=== PATIENT | male | born 1940 | race Caucasian/White ===

== ENCOUNTER 2021-02-19 11:09 | Inpatient (IN) | payer MEDICARE, BC ==
[~2021-02-19] VITALS: Ht 175.3 cm; Wt 73.5 kg
--- NOTE | ~2021-02-19 | RHP ---
PATIENT: KYLE COCHRAN JR MEDICAL RECORD: [id number] ACCOUNT: [id number] LOCATION:[facility] D.1119 : 39 ADMISSION DATE: 02/19/21 REHABILITATION HISTORY AND PHYSICAL EXAMINATION POST ADMISSION PHYSICIAN EXAMINATION ADMITTING DIAGNOSIS: Chemo-induced encephalopathy. HISTORY OF PRESENT ILLNESS: The patient is an 80-year-old gentleman who presented to [facility] due to right hip pain and numerous falls at home over the month. His x-ray apparently did not show anything acute. He did exhibit some improvement with physical therapy, progressing to transfers and being able to perform some lower extremity things. [facility] contacted a snf regarding his need for acute inpatient rehabilitation. Current diagnosis of osteoarthritis, hypertension, debility, pneumonia, CHF. The patient also takes chemotherapy medication for prostate cancer and some of this seems to have been instigated when he started taking this medication. Spouse reports that the patient continued to decline since 2019 when starting on the medication and he progressively became worse. She states that due to his extreme weakness and fainting that he was admitted to [facility] originally because of this and hip pain. Subsequent admission to the acute rehab was requested by the daughter and spouse to hopefully get him back to independently using a rolling walker. The patient has no injuries at this time. Spouse report that the patient spent 3 more days in acute rehab after having lithotripsy done secondary to a kidney stone. He apparently also exhibited some signs and symptoms of possible COVID infection, but this was never checked. and daughter reported that his taste and smell returned weeks after following admission and he has now been vaccinated for COVID. The patient also has been having some home health physical therapy since October, but continues to decline. He is unable to transfer independently and has become increasingly wheelchair bound. Hopefully, we can get him here in the rehab and get him back to somewhat of a prior level of function or actually able to ambulate independently with a rolling walker. COMORBIDITIES: Include CHF, gastroesophageal reflux disease, debility, hypertension and osteoarthritis. PAST MEDICAL HISTORY: Significant for kidney stones, history of prostate cancer, essential tremors, BPH, diastolic dysfunction, hyperlipidemia, hypertension and obstructive sleep apnea. PAST SURGICAL HISTORY: Includes lithotripsy, laminectomy. He has had colon endoscopies done in the past. ALLERGIES: LIPITOR AND LISINOPRIL. MEDICATIONS: Tylenol 1000 mg daily, B12 daily, propranolol 80 mg daily, losartan 100 mg daily, atorvastatin 40 mg daily, amlodipine 10 mg daily, Flomax 0.4 mg daily, Protonix 40 daily. He is on his own medicine enzalutamide which is a medicine for his prostate cancer. He is on Sanctura 20 mg b.i.d., clonidine 0.1 mg b.i.d., Ultram 50 mg as needed, primidone 250 t.i.d., Apresoline 50 mg t.i.d. and baclofen 20 mg t.i.d. HABITS: No current alcohol or tobacco use. HISTORY AND PHYSICAL [id number] KYLE COCHRAN JR FAMILY HISTORY: Noncontributory. SOCIAL HISTORY: The patient hopes to return back home and get back to his prior level of functioning. REVIEW OF SYSTEMS: GENERAL: He does complain of weakness and fatigue. He denies cold, cough, congestion. CARDIOVASCULAR: Denies any chest pain. PHYSICAL EXAMINATION: VITAL SIGNS: Stable, afebrile. GENERAL: An elderly gentleman in no acute distress upon exam. HEENT: Normocephalic and atraumatic. Mucosa moist. NECK: Supple. No lymphadenopathy. LUNGS: Clear in upper peralta. No wheezing or rales. HEART: Regular rate and rhythm. No murmurs, rubs or gallops. ABDOMEN: Soft, benign, nondistended. Positive bowel sounds times 4. EXTREMITIES: No clubbing, cyanosis. Does have some bruising noted in those areas. NEUROLOGIC: He does have diffuse weakness in the trunk muscles of his body and also on his proximal muscles of his upper thighs. LABORATORY DATA: His white count is 3.2, H&H of 12 and 36 and platelet count is noted to be 244. Sodium 137, potassium 4.2. BUN and creatinine of 12 and 0.6. Blood sugar is noted to be 91. ASSESSMENT: This is an 80-year-old gentleman admitted to the rehab with a working diagnosis of chemo-induced encephalopathy. The patient has potential to make improvement. We instituted the following multidisciplinary therapies including not limited to physical, occupational, respiratory, speech, nutritional services, prosthetics and orthotics. Given his complex medical condition and risks for further medical complications, rehabilitation services cannot be provided at a low level of care such as snf facility. PLAN: 1. Admit to [facility] for inpatient therapy to include the following disciplines; A. Physical therapy to improve gait, all transfer skills and bed mobility to a modified independent level. B. Occupational therapy to improve activities of daily living. C. Case management to help with discharge planning and placement options. D. Nutrition to assist with nutritional needs. E. Rehabilitation nursing to assist in monitoring the patient's underlying medical condition and to assist with any type of bowel or bladder management. 2. The patient's current medication and Medicare will be continued. 3. Placed on standard fall precautions. 4. The patient's estimated length of stay is approximately 7-10 days. 5. I discussed this patient during care team staff meeting this week. TRANSINT:[id number] Voice Confirmation ID: [id number] DOCUMENT ID: [id number] 03/07/2021 joseph GALLEGOS notes whether there has been none or any medical/functional HISTORY AND PHYSICAL [id number] KYLE COCHRAN JR change since admission: - No change since preadmission screen. EL attests patient continues to be appropriate for IRF: - Continues to be appropriate. DASH MEHTA MD CC: [id number] DICTATION DATE: 02/20/21903 NOC TECHNICIAN: 02/20/21930 ADM IN [facility] [address] [id number]
--- NOTE | 2021-02-19 10:30 | NUR ---
RECIEVED FROM NACHO A DIRECT ADMIT TO ROOM 1112K,ORIENTED TO ROOM AND SURROUNDINGS.CL IN REACH.
[2021-02-19] MEDS ORDERED: XTANDI40 MG PO (11:30)
[2021-02-19] MEDS ORDERED: BACLOFEN20 M1 PO (11:31)
[2021-02-19] MEDS ORDERED: HYDRALAZINE HCL50 MG PO (11:32)
[2021-02-19] MEDS ORDERED: MYSOLINE250 MG PO (11:38)
[2021-02-19] MEDS ORDERED: FLOMAX0.4 MG PO (11:39)
[2021-02-19] MEDS ORDERED: CLONIDINE HCL0.1 MG PO (11:40)
[2021-02-19] MEDS ORDERED: NORVASC10 MG PO (11:43)
[2021-02-19] MEDS ORDERED: LIPITOR40 MG PO (11:45)
[2021-02-19] MEDS ORDERED: OMEPRAZOLE40 MG PO (11:46)
[2021-02-19] MEDS ORDERED: COZAAR100 MG PO (11:47)
[2021-02-19] MEDS ORDERED: INDERAL 40 MG T40 MG PO (11:49)
[2021-02-19] MEDS ORDERED: TROSPIUM CHLORI20 MG PO (11:51)
[2021-02-19] MEDS ORDERED: VITAMIN B-12500 MCG PO (11:55)
[2021-02-19] MEDS ORDERED: ULTRAM50 MG PO (11:56)
[2021-02-19] MEDS ORDERED: ACETAMINOPHEN500 M1 PO (12:00)
[2021-02-19 14:11] LABS: CALC OSMOLALITY 273 mosm/kg (275-300); CALCIUM 7.9 mg/dL (8.5-10.1); CARBON DIOXIDE 24.3 mmol/L (21.0-32.0); CHLORIDE - SERUM 104 mmol/L (98-107); CREATININE - SERUM 0.6 mg/dL (0.6-1.3); GLUCOSE 91 mg/dL (74-106); POTASSIUM - SERUM 4.2 mmol/L (3.5-5.1); SODIUM 137 mmol/L (136-145); UREA NITROGEN 12 mg/dL (7-18); eGFR NON AFRICAN AMERICAN > 90 mL/min (90-120)
[2021-02-19 15:29] LABS: BASOPHILS 0.6 % (0-2); EOSINOPHILS 0.9 % (0-7); HEMATOCRIT 36.5 % (42.0-54.0); HEMOGLOBIN 12.1 g/dL (13.5-17.5); IMMATURE GRANULOCYTES 0.9 % (0-5); LYMPHOCYTE ABS# 1.15 10x3/uL (1.32-3.57); LYMPHOCYTES 36.3 % (15-50); MCH 33.5 pg (26.0-34.0); MCHC 33.2 g/dL (31.0-37.0); MCV 101.1 fL (80.0-100.0); MEAN PLATELET VOLUME 9.8 fL (7.4-10.4); MONOCYTES 15.1 % (2-11); NEUTROPHIL ABS# 1.46 10x3/uL (1.78-5.38); NEUTROPHILS 46.2 % (40-80); PLATELET COUNT 244 10x3/uL (130-400); RBC 3.61 10x6/uL (4.20-6.10); RDW 16.4 % (11.5-14.5); WBC 3.2 10x3/uL (4.8-10.8)
[2021-02-19 17:49] VITALS: BP 109/60; BMI 23.9
--- NOTE | 2021-02-19 19:00 | NUR ---
BEDSIDE REPORT COMPLETE. RECEIVED PT LYING IN BED. ALERT AND ORIENTED X4. DENIES ANY NEEDS OR PAIN. HOME CPAP AT BEDSIDE. BILATERAL HAND TREMORS NOTED. +4 EDEMA TO FEET. NO IV OR OXYGEN NOTED. CALL LIGHT AND URINAL WITHIN REACH. VIRGIE ALARM ON. FALL PRECAUTIONS IN PLACE. CPOC
[2021-02-19 19:30] VITALS: BP 160/72
[2021-02-19 20:40] VITALS: BP 160/72
[2021-02-19 22:02] VITALS: BP 156/74
--- NOTE | 2021-02-20 00:39 | NUR ---
PT LYING IN BED SUPINE EYES CLOSED RESTING. HOB ELEVATED. HOME CPAP ON. RR EVEN AND UNLABORED. CALL LIGHT AND URINAL WITHIN REACH. VIRGIE ALARM ON
--- NOTE | 2021-02-20 04:51 | NUR ---
PT LYING IN BED EYES CLOSED RESTING. RR EVEN AND UNLABORED. NO ACUTE CHANGES IN CONDITION THIS SHIFT. CALL LIGHT WITHIN REACH. VIRGIE ALARM ON
[2021-02-20 07:56] VITALS: BP 157/78
--- NOTE | 2021-02-20 08:00 | NUR ---
PT RESTING IN BED WITH EYES OPEN CALL LIGHT IN REACH WILL MONITER
--- NOTE | 2021-02-20 12:55 | NUR ---
PATIENT ADMITTS TO REHAB FROM HOME. HIS PCP IS DR. FIGUEROA. DISCHARGE PLANS ARE FOR PATIENT TO RETURN HOME WITH FAMILY. WILL CONTINUE TO FOLLOW WITH PATIENT.
--- NOTE | 2021-02-20 19:00 | NUR ---
BEDSIDE REPORT COMPLETE. RECEIVED PT LYING IN BED. ALERT AND ORIENTED X3. DENIES ANY NEEDS OR PAIN. NO DISTRESS NOTED. FEET EDEMA +3. ASSISTED PT CHANGING INTO GOWN WITH MOD ASSIST. CALL LIGHT AND URINAL WITHIN REACH. VIRGIE ALARM ON. CPOC
[2021-02-20 21:52] VITALS: BP 132/68
--- NOTE | 2021-02-21 01:57 | NUR ---
PT LYING IN BED SUPINE EYES CLOSED RESTING. HOB ELEVATED. HOME CPAP IN USE. RR EVEN AND UNLABORED. VIRGIE ALARM ON
--- NOTE | 2021-02-21 07:32 | NUR ---
PT LYING IN BED AWAKE. DENIES ANY NEEDS OR PAIN. NO DISTRESS NOTED. CALL LIGHT WITHIN REACH. VIRGIE ALARM ON
[2021-02-21 07:48] VITALS: BP 145/64
--- NOTE | 2021-02-21 08:00 | NUR ---
PT RESTING IN BED WITH EYES OPEN CALL LIGHT IN REACH WILL MONITER
[2021-02-21 08:11] LABS: BASOPHILS 0.3 % (0-2); EOSINOPHILS 0.6 % (0-7); HEMATOCRIT 38.4 % (42.0-54.0); HEMOGLOBIN 12.6 g/dL (13.5-17.5); IMMATURE GRANULOCYTES 0.6 % (0-5); LYMPHOCYTE ABS# 1.11 10x3/uL (1.32-3.57); MCH 33.1 pg (26.0-34.0); MCHC 32.8 g/dL (31.0-37.0); MCV 100.8 fL (80.0-100.0); MEAN PLATELET VOLUME 9.5 fL (7.4-10.4); MONOCYTES 14.2 % (2-11); NEUTROPHIL ABS# 1.56 10x3/uL (1.78-5.38); NEUTROPHILS 49.3 % (40-80); PLATELET COUNT 271 10x3/uL (130-400); RBC 3.81 10x6/uL (4.20-6.10); RDW 16.2 % (11.5-14.5); WBC 3.2 10x3/uL (4.8-10.8)
[2021-02-21 08:38] LABS: CALC OSMOLALITY 272 mosm/kg (275-300); CARBON DIOXIDE 24.3 mmol/L (21.0-32.0); CHLORIDE - SERUM 102 mmol/L (98-107); CREATININE - SERUM 0.7 mg/dL (0.6-1.3); GLUCOSE 93 mg/dL (74-106); SODIUM 137 mmol/L (136-145); UREA NITROGEN 11 mg/dL (7-18); eGFR NON AFRICAN AMERICAN > 90 mL/min (90-120)
[2021-02-21 12:37] VITALS: Ht 175.3 cm; Wt 73.5 kg
--- NOTE | 2021-02-21 14:18 | NUR ---
I have reviewed this patient and I concur with the Shift Assessment completed by the Licensed Practical Nurse today this shift.
--- NOTE | 2021-02-21 15:10 | NUR ---
HE IS A CLIENT OF [facility]
--- NOTE | 2021-02-21 18:04 | NUR ---
PT RESTING IN BED WITH EYES OPEN CALL LIGHT IN REACH WILL MONITER
--- NOTE | 2021-02-21 19:26 | NUR ---
AWAKE AND ALERT. RESTING IN BED WITH RESPIRATIONS UNLABORED. NOTED 4+ EDEMA IN BILATERAL FEET. BOTH FEET TURNED OUT. REPORT RECIEVED THAT HE HAD BEEN BEDBOUND AT HOME. NO ACUTE DISTRESS NOTED. CALL LIGHT IN REACH.
[2021-02-21 19:34] VITALS: BP 96/45
--- NOTE | 2021-02-22 06:03 | NUR ---
INCONTINENT OF URINE AND MEDIUM SIZE BROWN STOOL. STRONG ODOR TO STOOL WITH ORANGE/RED COLOR. ORDER FOR OCCULT BLOOD IN STOOL. SAMPLE OF STOOL OBTAINED AND SENT TO LAB FOR ANALYSIS. DENIES PAIN. NO DISTRESS NOTED. CALL LIGHT IN REACH.
[2021-02-22 07:00] VITALS: BP 107/74
--- NOTE | 2021-02-22 08:00 | NUR ---
SHIFT ASSMT COMPLETED.CL IN REACH.BREAKFAST GIVEN.
--- NOTE | 2021-02-22 12:00 | NUR ---
eating lunch up in wc.
--- NOTE | 2021-02-22 16:00 | NUR ---
resting quietly in bed.
[2021-02-22 19:25] VITALS: BP 125/56
--- NOTE | 2021-02-22 19:39 | NUR ---
AWAKE AND ALERT. RESTING IN BED WITH RESPIRATIONS UNLABORED. NO DISTRESS NOTED. CALL LIGHT IN REACH.
--- NOTE | 2021-02-23 05:12 | NUR ---
INCONTINENT OF BM. CLEANED AND REPOSITIONED. NO ACUTE CHANGES IN CONDITION THIS SHIFT. RESPIRATIONS UNLABORED. NO DISTRESS NOTED.
[2021-02-23 08:00] VITALS: BP 171/82
[2021-02-23 19:00] VITALS: BP 113/66
--- NOTE | 2021-02-23 19:58 | NUR ---
AWAKE AND ALERT. RESTING IN BED WITH RESIRATIONS UNLABORED. NO ACUTE DISTRESS NOTED. CALL LIGHT IN REACH.
--- NOTE | 2021-02-24 06:28 | NUR ---
QUIET HOURS. NO ACUTE CHANGES IN CONDITION THIS SHIFT. RESTING IN BED WITH NO DISTRESS NOTED. CALL LIGHT IN REACH.
[2021-02-24 08:30] VITALS: BP 133/79
[2021-02-24 10:33] LABS: BASOPHILS 0.3 % (0-2); EOSINOPHILS 1.3 % (0-7); HEMATOCRIT 38.7 % (42.0-54.0); HEMOGLOBIN 12.8 g/dL (13.5-17.5); LYMPHOCYTE ABS# 1.01 10x3/uL (1.32-3.57); LYMPHOCYTES 32.3 % (15-50); MCH 33.2 pg (26.0-34.0); MCHC 33.1 g/dL (31.0-37.0); MCV 100.5 fL (80.0-100.0); MEAN PLATELET VOLUME 9.4 fL (7.4-10.4); MONOCYTES 14.7 % (2-11); NEUTROPHIL ABS# 1.58 10x3/uL (1.78-5.38); NEUTROPHILS 50.4 % (40-80); PLATELET COUNT 234 10x3/uL (130-400); RBC 3.85 10x6/uL (4.20-6.10); RDW 15.7 % (11.5-14.5); WBC 3.1 10x3/uL (4.8-10.8)
[2021-02-24 10:45] LABS: CALC OSMOLALITY 274 mosm/kg (275-300); CALCIUM 8.2 mg/dL (8.5-10.1); CARBON DIOXIDE 26.6 mmol/L (21.0-32.0); CHLORIDE - SERUM 103 mmol/L (98-107); CREATININE - SERUM 0.6 mg/dL (0.6-1.3); GLUCOSE 101 mg/dL (74-106); POTASSIUM - SERUM 3.7 mmol/L (3.5-5.1); SODIUM 138 mmol/L (136-145); UREA NITROGEN 11 mg/dL (7-18); eGFR NON AFRICAN AMERICAN > 90 mL/min (90-120)
--- NOTE | 2021-02-24 13:39 | NUR ---
IN THERAPY GYM
--- NOTE | 2021-02-24 16:47 | NUR ---
Nutrition Follow-up: Diet: Regular + Boost TID PO Intake: ~64% average x last 9 meals. Patient states that his appetite is "not too good." States that his sense of taste and smell has been altered for a while now. States that he is drinking 1-2 cartons of Boost per day. Last BM: 02/23/21 Wt: 162# (02/21/21) Meds and labs reviewed. Recommend continue current diet and oral nutrition supplement. RD encouraged PO Intake. RD will follow-up within 7 days.
--- NOTE | 2021-02-24 19:00 | NUR ---
BEDSIDE REPORT COMPLETE. RECEIVED PT LYING IN BED. ALERT AND ORIENTED X3. DENIES ANY NEEDS OR PAIN. NO DISTRESS NOTED. HOME CPAP SETUP AT BEDSIDE. EDEMA +3 TO FEET. EXTERNAL ROTATION AND FOOT DROP NOTED TO FEET. CALL LIGHT AND WATER WITHIN REACH. VIRGIE ALARM ON. CPOC
[2021-02-24 20:59] VITALS: BP 117/56
--- NOTE | 2021-02-25 00:44 | NUR ---
PT LYING IN BED ON RIGHT SIDE EYES CLOSED RESTING. RR EVEN AND UNLABORED. HOME CPAP ON. VIRGIE ALARM ON
--- NOTE | 2021-02-25 04:06 | NUR ---
PT LYING IN BED ON LEFT SIDE EYES CLOSED RESTING. RR EVEN AND UNLABORED. VIRGIE ALARM ON
[2021-02-25 07:46] VITALS: BP 146/79
--- NOTE | 2021-02-25 19:05 | NUR ---
BEDSIDE REPORT COMPLETE. RECEIVED PT LYING IN BED. ALERT AND ORIENTED X4. DENIES ANY NEEDS. C/O MILD DISCOMFORT IN FEET. +3 EDEMA NOTED TO FEET. NO IV OR OXYGEN NOTED. PT DOES WEAR HOME CPAP AT HS. CALL LIGHT AND WATER WITHIN REACH. VIRGIE ALARM ON. CPOC
[2021-02-25 20:28] VITALS: BP 99/76
--- NOTE | 2021-02-26 02:17 | NUR ---
PT LYING IN BED SUPINE EYES CLOSED RESTING. RR EVEN AND UNLABORED. HOME CPAP ON. VIRGIE ALARM ON.
--- NOTE | 2021-02-26 06:28 | NUR ---
PT LYING IN BED ON LEFT SIDE EYES CLOSED RESTING. NO DISTRESS NOTED. NO ACUTE CHANGES IN CONDITION THIS SHIFT. VIRGIE ALARM ON
[2021-02-26 07:38] VITALS: BP 168/70
--- NOTE | 2021-02-26 08:00 | NUR ---
SHIFT ASSMT COMPLETED.
[2021-02-26 08:02] LABS: BASOPHILS 0.4 % (0-2); HEMATOCRIT 38.8 % (42.0-54.0); HEMOGLOBIN 12.7 g/dL (13.5-17.5); IMMATURE GRANULOCYTES 0.8 % (0-5); LYMPHOCYTE ABS# 1.15 10x3/uL (1.32-3.57); LYMPHOCYTES 45.6 % (15-50); MCH 33.4 pg (26.0-34.0); MCHC 32.7 g/dL (31.0-37.0); MCV 102.1 fL (80.0-100.0); MEAN PLATELET VOLUME 9.4 fL (7.4-10.4); MONOCYTES 13.9 % (2-11); NEUTROPHIL ABS# 0.94 10x3/uL (1.78-5.38); NEUTROPHILS 37.3 % (40-80); PLATELET COUNT 231 10x3/uL (130-400); RDW 15.7 % (11.5-14.5); WBC 2.5 10x3/uL (4.8-10.8)
[2021-02-26 08:22] LABS: CALC OSMOLALITY 271 mosm/kg (275-300); CALCIUM 8.6 mg/dL (8.5-10.1); CARBON DIOXIDE 29.1 mmol/L (21.0-32.0); CHLORIDE - SERUM 100 mmol/L (98-107); CREATININE - SERUM 0.6 mg/dL (0.6-1.3); GLUCOSE 87 mg/dL (74-106); POTASSIUM - SERUM 4.9 mmol/L (3.5-5.1); SODIUM 136 mmol/L (136-145); UREA NITROGEN 14 mg/dL (7-18); eGFR NON AFRICAN AMERICAN > 90 mL/min (90-120)
--- NOTE | 2021-02-26 12:00 | NUR ---
SITTING UP EATING LUNCH.
--- NOTE | 2021-02-26 16:20 | NUR ---
CARE TEAM MEETING: PATIENT SPOUSE AND DAUGHTER ATTENDED THE MEETING.WE DISCUSSED SNF PLACEMENT. FAMILY WILL TOUR FACILITES AND WILL LET ME KNOW WHERE TO MAKE A REFRRAL TO. [facility] DATE IS 03/07/21.
--- NOTE | 2021-02-26 19:58 | NUR ---
AWAKE AND ALERT. RESTING IN BED WITH RESPIRATIONS UNLABORED. NO DISTRESS NOTED. CALL LIGHT IN REACH.
[2021-02-26 20:30] VITALS: BP 92/56
--- NOTE | 2021-02-27 05:45 | NUR ---
QUIET HOURS. NO ACUTE CHANGES IN CONDITION THIS SHIFT. RESTING IN BED WITH NO DISTRESS NOTED. CALL LIGHT IN REACH.
[2021-02-27 08:14] VITALS: BP 138/71
--- NOTE | 2021-02-27 19:37 | NUR ---
AWAKE AND ALERT. RESTING IN BED WITH RESPIRATIONS UNLABORED. CPAP AT BEDSIDE. NO ACUTE DISTRESS NOTED. CALL LIGHT IN REACH.
[2021-02-27 20:36] VITALS: BP 121/55
--- NOTE | 2021-02-28 05:36 | NUR ---
QUIET HOURS. NO ACUTE CHANGES IN CONDITION THIS SHIFT. RESTING IN BED WITH NO DISTRESS NOTED. PD CATHETER IN PLACE.
[2021-02-28 08:04] LABS: BASOPHILS 1.1 % (0-2); EOSINOPHILS 1.5 % (0-7); HEMOGLOBIN 11.9 g/dL (13.5-17.5); IMMATURE GRANULOCYTES 0.8 % (0-5); LYMPHOCYTE ABS# 1.11 10x3/uL (1.32-3.57); LYMPHOCYTES 41.7 % (15-50); MCH 33.5 pg (26.0-34.0); MCHC 33.1 g/dL (31.0-37.0); MCV 101.4 fL (80.0-100.0); MEAN PLATELET VOLUME 9.9 fL (7.4-10.4); MONOCYTES 16.2 % (2-11); NEUTROPHIL ABS# 1.03 10x3/uL (1.78-5.38); NEUTROPHILS 38.7 % (40-80); PLATELET COUNT 242 10x3/uL (130-400); RBC 3.55 10x6/uL (4.20-6.10); RDW 15.6 % (11.5-14.5); WBC 2.7 10x3/uL (4.8-10.8)
[2021-02-28 08:07] LABS: CALC OSMOLALITY 269 mosm/kg (275-300); CALCIUM 8.5 mg/dL (8.5-10.1); CARBON DIOXIDE 29.7 mmol/L (21.0-32.0); CHLORIDE - SERUM 100 mmol/L (98-107); CREATININE - SERUM 0.5 mg/dL (0.6-1.3); GLUCOSE 91 mg/dL (74-106); POTASSIUM - SERUM 4.7 mmol/L (3.5-5.1); SODIUM 135 mmol/L (136-145); UREA NITROGEN 13 mg/dL (7-18); eGFR NON AFRICAN AMERICAN > 90 mL/min (90-120)
[2021-02-28 08:11] VITALS: BP 159/64
--- NOTE | 2021-02-28 09:00 | NUR ---
SITTING UP IN WC IN ROOM FINISHING BREAKFAST. DENIES NEEDS OR C/O. 3+ SWELLING TO FEET AND THEY ARE TURNED OUTWARD WHICH IS NOT NEW. HE IS NON AMBULATORY. CALL LIGHT IN REACH
--- NOTE | 2021-02-28 19:03 | NUR ---
BEDSIDE REPORT COMPLETE. RECEIVED PT LYING IN BED EYES CLOSED RESTING. EASILY AROUSED WITH STIMULI. ALERT AND ORIENTED X3. DENIES ANY NEEDS OR PAIN. EDEMA +3 TO FEET NOTED. EXTERNAL FEET ROTATION. CPAP AND URINALS WITHIN REACH. CALL LIGHT AND WATER WITHIN REACH. VIRGIE ALARM ON. PT REFUSED SHOWER THIS SHIFT STATES "I AM TOO TIRED AND NOT FEELING UP TO IT" BED BATH OFFERED PT REFUSED WELL. CPOC
[2021-02-28 21:20] VITALS: BP 122/58
--- NOTE | 2021-03-01 03:18 | NUR ---
PT LYING IN BED SUPINE EYES CLOSED RESTING. CPAP IN USE. REPOSITIONED PT TO LEFT SIDE USING PILLOWS FOR SUPPORT. PT DENIES ANY PAIN. TOILETING OFFERED PT DENIES NEEDS. CALL LIGHT WITHIN REACH. VIRGIE ALARM ON.
--- NOTE | 2021-03-01 05:39 | NUR ---
PT LYING IN BED EYES CLOSED RESTING. RR EVEN AND UNLABORED. NO ACUTE CHANGES IN CONDITION THIS SHIFT. CPAP IN USE. CALL LIGHT AND URINAL WITHIN REACH. VIRGIE ALARM ON
[2021-03-01 08:00] VITALS: BP 132/64
--- NOTE | 2021-03-01 12:41 | NUR ---
SITTING UP IN BED FOR LUNCH. DENIES NEEDS OR C/O. CALL LIGHT IN REACH
--- NOTE | 2021-03-01 18:57 | NUR ---
BEDSIDE REPORT COMPLETE. RECEIVED PT LYING IN BED SUPINE. HOB ELEVATED. ALERT AND ORIENTED X3. C/O 01/01 GENERALIZED DISCOMFORT. REQUESTS PAIN MEDICATION WITH HS MEDS. NO OTHER NEEDS VOICED. +3 EDEMA IN FEET WITH EXTERNAL ROTATION NOTED. HEELS BRIDGED. CALL LIGHT AND WATER WITHIN REACH. VIRGIE ALARM ON. CPOC
[2021-03-01 19:00] VITALS: BP 109/58
--- NOTE | 2021-03-02 01:47 | NUR ---
PT LYING IN BED ON RIGHT SIDE EYES CLOSED RESTING. REPOSITIONED TO LEFT SIDE USING PILLOW FOR SUPPORT. NO DISTRESS NOTED. CPAP IN USE. CALL LIGHT WITHIN REACH. VIRGIE ALARM ON
--- NOTE | 2021-03-02 05:13 | NUR ---
PT LYING IN BED EYES CLOSED RESTING. EASILY AROUSED WITH STIMULI. EARLY AM MEDS ADMINISTERED WITHOUT DIFFICULTY. DENIES ANY NEEDS OR PAIN. NO DISTRESS NOTED. NO ACUTE CHANGES IN CONDITION THIS SHIFT. CALL LIGHT WITHIN REACH. VIRGIE ALARM ON.
[2021-03-02 08:00] VITALS: BP 126/63
--- NOTE | 2021-03-02 18:55 | NUR ---
BEDSIDE REPORT COMPLETE. RECEIVED PT LYING IN BED AWAKE. ALERT AND ORIENTED X3/ DENIES ANY NEEDS OR PAIN. NO DISTRESS NOTED. HEELS BRIDGED. +3 EDEMA TO FEET. CALL LIGHT AND URINAL WITHIN REACH. VIRGIE ALARM ON. CPOC
[2021-03-02 19:00] VITALS: BP 118/70
--- NOTE | 2021-03-02 23:58 | NUR ---
PT LYING IN BED ON RIGHT SIDE EYES CLOSED RESTING. REPOSITIONED TO LEFT SIDE. CPAP IN USE. NO DISTRESS NOTED. DENIES NEEDS. CALL LIGHT WITHIN REACH. VIRGIE ALARM ON
--- NOTE | 2021-03-03 04:30 | NUR ---
PT LYING IN BED SUPINE BEING ASSISTED BY BERNIE YANG WITH COMPLETE BED BATH AND LINEN CHANGE MAXIMAL ASSIST. PT DENIES ANY NEEDS OR PAIN. NO DISTRESS NOTED. NO ACUTE CHANGES IN CONDITION THIS SHIFT. CALL LIGHT WITHIN REACH. VIRGIE ALARM ON
[2021-03-03 07:57] VITALS: BP 147/66
[2021-03-03 08:18] LABS: BASOPHILS 0.8 % (0-2); EOSINOPHILS 2.4 % (0-7); HEMOGLOBIN 12.5 g/dL (13.5-17.5); IMMATURE GRANULOCYTES 1.2 % (0-5); LYMPHOCYTES 43.5 % (15-50); MCH 33.2 pg (26.0-34.0); MCHC 32.9 g/dL (31.0-37.0); MCV 101.1 fL (80.0-100.0); MEAN PLATELET VOLUME 9.4 fL (7.4-10.4); MONOCYTES 15.4 % (2-11); NEUTROPHIL ABS# 0.93 10x3/uL (1.78-5.38); NEUTROPHILS 36.7 % (40-80); PLATELET COUNT 236 10x3/uL (130-400); RBC 3.76 10x6/uL (4.20-6.10); RDW 15.3 % (11.5-14.5); WBC 2.5 10x3/uL (4.8-10.8)
[2021-03-03 08:30] LABS: CALC OSMOLALITY 269 mosm/kg (275-300); CALCIUM 8.7 mg/dL (8.5-10.1); CARBON DIOXIDE 29.4 mmol/L (21.0-32.0); CHLORIDE - SERUM 98 mmol/L (98-107); CREATININE - SERUM 0.7 mg/dL (0.6-1.3); GLUCOSE 91 mg/dL (74-106); POTASSIUM - SERUM 4.7 mmol/L (3.5-5.1); SODIUM 134 mmol/L (136-145); UREA NITROGEN 17 mg/dL (7-18); eGFR NON AFRICAN AMERICAN > 90 mL/min (90-120)
--- NOTE | 2021-03-03 11:08 | NUR ---
Nutrition Re-assessment Diet: Regular + BOOST TID PO intake: ~61% average x last 9 meals. Ate 75% of breakfast this AM. Last BM: 02/23/21 x 8 days now (per nursing flowsheets) Wt: 162# (02/21/21), no new weight Meds and labs reviewed Estimated nutrition needs: [id number] marco (25-35 Act), 74-88gms protein (1-1.2), 1850-2200mL fluid (or per MD) Nutrition diagnosis: Previous nutrition diagnosis of moderate malnutrition- progressing. Nutrition goals: -PO intake =/>75% meals -Meet fluid needs -Stable weight [facility] Recommendations/Inteventions: -Needs new weight -Recommend continue current diet and oral nutrition supplements. Will continue to honor food preferences. -RD will continue to monitor PO intake and wt trend. -Recommend to consider increase in bowel regimen to promote BM regularity and help preserve appetite. -RD will follow-up 03/07/21.
--- NOTE | 2021-03-03 12:51 | NUR ---
SITTING UP IN WC FOR LUNCH. 3+ EDEMA NOTED TO BOTH FEET WHICH POINT OUT WITH HEEL TOGETHER. HE IS NON AMBULATORY AND REQUIRES MAX ASST TO TRANSFER. HE IS CONT OF BOWEL AND BLADDER. CALL LIGHT IN REACH
--- NOTE | 2021-03-03 19:42 | NUR ---
AWAKE AND ALERT. RESTING IN BED WITH RESPIRATIONS UNLABORED. NO DISTRESS NOTED. CALL LIGHT IN REACH.
[2021-03-03 19:58] VITALS: BP 111/54
--- NOTE | 2021-03-04 05:28 | NUR ---
QUIET HOURS. NO ACUTE CHANGES IN CONDITION THIS SHIFT. RESTING IN BED WITH NO DISTRESS NOTED.
[2021-03-04 07:34] VITALS: BP 137/64
[2021-03-04 19:58] VITALS: BP 92/41
--- NOTE | 2021-03-04 20:01 | NUR ---
AWAKE AND ALERT. RESTING IN BED WITH RESPIRATIONS UNLABORED. NO DISTRESS NOTED. CALL LIGHT IN REACH. 3+ EDEMA IN FEET.
--- NOTE | 2021-03-05 04:59 | NUR ---
QUIET HOURS. NO ACUTE CHANGES IN CONDITION THIS SHIFT. RESTING IN BED WITH NO DISTRESS NOTED.
[2021-03-05 07:51] VITALS: BP 156/63
--- NOTE | 2021-03-05 08:00 | NUR ---
SHIFT ASSMT COMPLETED.
[2021-03-05 11:59] LABS: SARS-CoV-2 ANTIGEN NEGATIVE- SARS-COV-2 (NEGATIVE)
--- NOTE | 2021-03-05 12:00 | NUR ---
SITTING UP EATING LUNCH.
--- NOTE | 2021-03-05 14:52 | NUR ---
CARE TEAM MEETING: PATIENT SPOUSE ATTENDED THE MEETING. HER QUESTIONS AND CONCERNS WERE ADDRESSD. PATIENT HAS BEEN ACCPETED TO [facility] AND WILL DISCHARGE THERE 03/07/21 VIA FACILITY [facility]. WILL CONTINUE TO FOLLOW WITH PATIENT.
--- NOTE | 2021-03-05 19:10 | NUR ---
BEDSIDE REPORT COMPLETE. RECEIVED PT LYING IN BED. ALERT AND ORIENTED X4. DENIES ANY NEEDS OR PAIN. +2 EDEMA NOTED TO FEET WITH EXTERNAL ROTATION. NO DISTRESS NOTED. CPAP AT BEDSIDE FILLED WITH WATER. MEPILEX TO BUTTOCKS FOR PROTECTION. CALL LIGHT AND WATER WITHIN REACH. VIRGIE ALARM ON. CPOC
[2021-03-05 21:24] VITALS: BP 100/51
--- NOTE | 2021-03-06 03:31 | NUR ---
PT LYING IN BED SUPINE EYES CLOSED RESTING. RR EVEN AND UNLABORED. CPAP IN USE. CALL LIGHT AND URINAL WITHIN REACH. VIRGIE ALARM ON
[2021-03-06 07:42] VITALS: BP 149/63
--- NOTE | 2021-03-06 08:30 | NUR ---
SITTING IN WC IN THERAPY GYM WORKING WITH Lindsey
--- NOTE | 2021-03-06 18:21 | NUR ---
SITTING UP IN BED. VISITING. DENIES NEEDS OR C/O. CALL LIGHT IN REACH
--- NOTE | 2021-03-06 19:00 | NUR ---
BEDSIDE REPORT COMPLETE. RECEIVED PT SITTING UP IN BED. ALERT AND ORIENTED X4. DENIES ANY NEEDS OR PAIN. NO DISTRESS NOTED. CALL LIGHT AND WATER WITHIN REACH. VIRGIE ALARM ON. CPOC
[2021-03-06 20:42] VITALS: BP 96/47
--- NOTE | 2021-03-07 01:16 | NUR ---
PT LYING IN BED SUPINE EYES CLOSED RESTING. CPAP IN USE. HEELS FLOATED. RR EVEN AND UNLABORED. CALL LIGHT WITHIN REACH. VIRGIE ALARM ON
--- NOTE | 2021-03-07 04:57 | NUR ---
PT LYING IN BED AWAKE. INCONTINENCE CARE PROVIDED SMALL FORMED BM. PT DENIES ANY OTHER NEEDS. NO ACUTE CHANGES IN CONDITION THIS SHIFT. CALL LIGHT WITHIN REACH. VIRGIE ALARM ON
[2021-03-07 07:26] VITALS: BP 142/67
== END 2021-03-07 13:30 | DRG 92 ==
LOC: D.REHAB 11:09
PROVIDERS: ADMIT Emergency Medicine; ATTEND Emergency Medicine
DX: G92 Toxic encephalopathy (principal); G72.0 Drug-induced myopathy; K21.9 Gastro-esophageal reflux disease without esophagitis; I11.0 Hypertensive heart disease with heart failure; I50.9 Heart failure, unspecified; M19.90 Unspecified osteoarthritis, unspecified site; R53.81 Other malaise; T45.1X5D Adverse effect of antineoplastic and immunosuppressive drugs, subsequent encounter; E78.5 Hyperlipidemia, unspecified; C61 Malignant neoplasm of prostate